=== PATIENT | male | born 1975 | race Caucasian/White ===

== ENCOUNTER → 2025-01-04 | Outpatient (CLI) | payer BC | LOC: M SOG 07:57 | PROVIDERS: ATTEND Physician Assistant | DX: Z53.9 Procedure and treatment not carried out, unspecified reason (principal) ==

== ENCOUNTER 2025-03-06 11:40 | Day surgery (SDC) | payer BC ==
[~2025-03-06] VITALS: Ht 172.7 cm; Wt 87.2 kg
[~2025-03-06 11:40] MED LIST: CARV6.25 PO; CELE1CAP99 PO; CETI-24 PO; FLUTISP; LISI2.5T9 PO
[2025-03-06] MEDS ORDERED: propofoL 200 MG/20 ML VIAL As Ordered ONE (13:19)
[2025-03-06] MEDS ORDERED: fentaNYL 100 MCG/2 ML INJECTION As Ordered ONE (13:20)
[2025-03-06] MEDS ORDERED: PHENYLephrine 500MCG 5ML (100MCG/ML) SYRINGE As Ordered ONE (14:22)
[2025-03-06] MEDS ORDERED: ePHEDrine SULFATE 25 MG/5 ML(5MG/ML) SYRINGE As Ordered ONE (14:22)
[2025-03-06] MEDS ORDERED: LIDOCAINE 2% JELLY 6ML SYRINGE As Ordered ONE (14:58)
== END 2025-03-06 14:28 | disposition home or self-care (01) ==
LOC: M OPP 11:40
PROVIDERS: ATTEND Surgery
DX: Z12.11 Encounter for screening for malignant neoplasm of colon (principal); Z12.12 Encounter for screening for malignant neoplasm of rectum; D12.5 Benign neoplasm of sigmoid colon; D12.3 Benign neoplasm of transverse colon; K21.00 Gastro-esophageal reflux disease with esophagitis, without bleeding; K57.30 Diverticulosis of large intestine without perforation or abscess without bleeding; R10.13 Epigastric pain; K30 Functional dyspepsia; I10 Essential (primary) hypertension; Z79.899 Other long term (current) drug therapy; F17.220 Nicotine dependence, chewing tobacco, uncomplicated; Z88.1 Allergy status to other antibiotic agents; Z88.8 Allergy status to other drugs, medicaments and biological substances
CPT/HCPCS: 43239; 45380; 88305; J2371; J3010

== ENCOUNTER → 2025-06-25 | Outpatient (CLI) | payer OTHER | LOC: M LAB 12:56 | PROVIDERS: ATTEND Ophthalmology | DX: H30.92 Unspecified chorioretinal inflammation, left eye (principal) ==